=== PATIENT | male | born 1970 | race Two or more races ===

== ENCOUNTER 2019-03-29 17:30 | Inpatient (IN) | payer MEDICAID ==
[~2019-03-29] VITALS: Ht 182.9 cm; Wt 94.1 kg
--- NOTE | 2019-03-29 17:42 | NUR ---
CAME IN FOR WORSENING EPIGASTRIC PAIN X 2 DAYS, -N/V/D. TO ER BED 11, HOOKED TO MONITOR, CHANGED TO GOWN, PROVIDED W WARM BLANKET, AWAITING MD LOPEZ.
--- NOTE | 2019-03-29 17:48 | NUR ---
DR ALMAGUER AT BEDSIDE
[2019-03-29] MEDS ORDERED: SUCRALFATE 1 G TABLET PO ONE (18:00)
--- NOTE | 2019-03-29 18:00 | NUR ---
PUBLIC HEALTH MICROBIOLOGIST AT BEDSIDE
[2019-03-29] MEDS ORDERED: SUCRALFATE 1 G TABLET ONE (18:01)
--- NOTE | 2019-03-29 18:04 | NUR ---
US TECH AT BEDSIDE
[2019-03-29] MEDS ORDERED: TIOT18CA3 IH (18:40)
[2019-03-29] MEDS ORDERED: HYDR-3972 PO (18:40)
[2019-03-29] MEDS ORDERED: ZOLP10TA6 PO (18:40)
[2019-03-29 18:46] LABS: BASOPHILS % (AUTO) 0.6 % (0.0-2.0); EOSINOPHILS % (AUTO) 3.7 % (0.0-6.0); HEMATOCRIT 42 % (39-51); HEMOGLOBIN 14.3 g/dL (13.5-17.5); LYMPHOCYTES % (AUTO) 33.5 % (20.0-44.0); MEAN CORPUSCULAR HGB CONC 34 g/dl (31.0-36.0); MEAN CORPUSCULAR VOLUME 85 fL (80-96); MONOCYTES # (AUTO) 0.5 /CMM (0.1-1.30); MONOCYTES % (AUTO) 8.2 % (2.0-12.0); NEUTROPHILS # (AUTO) 3.3 /CMM (1.8-8.9); PLATELET COUNT (AUTO) 203 /CMM (150-450); RED BLOOD CELL COUNT(AUTO) 4.94 MIL/uL (4.5-6.0); WHITE BLOOD COUNT (AUTO) 6.1 K/uL (4.3-11.0)
[2019-03-29 18:57] LABS: CALCIUM, SERUM 9.1 mg/dL (8.5-10.1); CARBON DIOXIDE 28 mmol/L (21-32); CHLORIDE 105 mmol/L (98-107); CREATININE 0.8 mg/dL (0.6-1.3); GLUCOSE 96 mg/dL (74-106); POTASSIUM 4.5 mmol/L (3.5-5.1); SODIUM SERUM 141 mmol/L (136-145); UREA NITROGEN, BLOOD 15 mg/dL (7-18)
[2019-03-29 19:03] LABS: ALANINE AMINOTRANSFERASE 20 U/L (12-78); ALKALINE PHOSPHATASE 88 U/L (46-116); ASPARTATE AMINOTRANSFERASE 12 U/L (15-37); BILIRUBIN,DIRECT 0.1 mg/dL (0.0-0.2); BILIRUBIN,TOTAL 0.3 mg/dL (0.2-1.0); LIPASE 135 U/L (73-393); TOTAL PROTEIN, SERUM 7.4 g/dL (6.4-8.2)
[2019-03-29] MEDS ORDERED: IV D5/0.45 NACL 500 ML IV ONE (19:30)
[2019-03-29] MEDS ORDERED: PIPERACILLIN /TAZOBACTAM 3.375 G in IV D5W 50 ML IV ONE (19:30)
--- NOTE | 2019-03-29 19:30 | NUR ---
REPORT GIVEN TO LUCRECIA PIZANO FOR ALLIE
[2019-03-29] MEDS ORDERED: PIPERACILLIN /TAZOBACTAM 3.375 G VIAL IV ONE (19:34)
--- NOTE | 2019-03-29 19:59 | NUR ---
D5 1/2 NS 500ml @150ml/hr PER MD ORDER
--- NOTE | 2019-03-29 21:21 | NUR ---
ADMIT TO 200 [facility] DX CHOLECYSTITIS ACCEPTING FARZANA DNP
--- NOTE | 2019-03-29 22:12 | NUR ---
REPORT GIVEN TO JERICA CABALLERO FOR ALLIE
[2019-03-29] MEDS ORDERED: DEXTROSE 50%-WATER 50 ML DISP.SYRIN IV PRN (22:30)
[2019-03-29] MEDS ORDERED: Z GUARD REMEDY 2 OZ OINT TP PRN (22:30)
[2019-03-29] MEDS ORDERED: ACETAMINOPHEN 325 MG TABLET PO PRN (22:30)
[2019-03-29] MEDS ORDERED: ONDANSETRON HCL/PF 4 MG/2 ML VIAL IVP PRN (22:30)
[2019-03-29 22:38] VITALS: BP 133/82
[2019-03-29] MEDS: MORPHINE SULFATE INJ 2 MG/ML DISP.SYRIN IV PRN (22:57)
[2019-03-29] MEDS ORDERED: IV D5 LR 1,000 ML IV PRN (23:00)
[2019-03-29] MEDS: BLOOD SUGAR DIAGNOSTIC 1 EACH STRIP IN SCH (23:12)
[2019-03-29] MEDS: INSULIN REGULAR, HUMAN 100 UNIT/ML 3 ML VIAL SQ PRN (23:12)
--- NOTE | 2019-03-29 23:58 | NUR ---
RECEIVE PT VIA RODRIGUEZ FROM [facility] AT 2238 ADMIT TO MS FLOOR PT A/O X4, HEAD TO TOE SKIN ASSESSMENT IS DONE NO OPEN WOUNDS. PT EDUCATED PRE-OPERATIVE TEACHING FOR SURGERY TOMORROW. PT COMPLAINING OF ABDOMINAL PAIN MEDICATED WITH MORPHINE IVP WITH RELIEF PT FEELS MORE COMFORTABLE, MAINTAINS NPO, DENIES NAUSEA, VOMITING, FEVER AND DIARRHEA. DENIES CHEST PAIN. BROTHER AT BEDSIDE. KEPT CLEAN AND DRY AND COMFORTABLE. NEEDS ATTENDED AND ANTICIPATED. SAFETY MEASURES AT ALL TIMES. WILL CONT TO [facility].
[2019-03-30] VITALS (10 sets, daily range): BP systolic 107–139; BP diastolic 55–77
[2019-03-30] MEDS ORDERED: PIPERACILLIN /TAZOBACTAM 3.375 G VIAL IV ONE (00:12)
[2019-03-30] MEDS ORDERED: ZOSYN IVPB 3.375 G in IV D5W 50ml IV ONE (02:00)
[2019-03-30] MEDS: INSULIN REGULAR, HUMAN 100 UNIT/ML 3 ML VIAL SQ PRN (05:14)
[2019-03-30] MEDS: BLOOD SUGAR DIAGNOSTIC 1 EACH STRIP IN SCH ×2 (05:14→11:20)
--- NOTE | 2019-03-30 06:08 | NUR ---
MS RN ASLEEP AND EASILY AWAKEN, MAINTAINS NPO. NO C/O PAIN, RESPIRATION EVEN AND UNLABORED, STABLE, NEEDS ATTENDED AND ANTICIPATED, KEPT CLEAN AND DRY AND COMFORTABLE. NURSING CARE RENDERED, AFEBRILE, NO N,V,D. SAFETY MEASURES AT ALL TIMES. ENDORSE TO THE NEXT SHIFT.
[2019-03-30 06:53] LABS: BASOPHILS % (AUTO) 0.6 % (0.0-2.0); EOSINOPHILS % (AUTO) 2.9 % (0.0-6.0); HEMATOCRIT 42 % (39-51); HEMOGLOBIN 14.4 g/dL (13.5-17.5); LYMPHOCYTES # (AUTO) 1.8 /CMM (0.8-4.8); LYMPHOCYTES % (AUTO) 28.8 % (20.0-44.0); MEAN CORPUSCULAR HGB CONC 34 g/dl (31.0-36.0); MEAN CORPUSCULAR VOLUME 85 fL (80-96); MONOCYTES # (AUTO) 0.5 /CMM (0.1-1.30); MONOCYTES % (AUTO) 7.3 % (2.0-12.0); NEUTROPHILS # (AUTO) 3.8 /CMM (1.8-8.9); NEUTROPHILS % (AUTO) 60.4 % (43.0-81.0); PLATELET COUNT (AUTO) 186 /CMM (150-450); RED BLOOD CELL COUNT(AUTO) 4.93 MIL/uL (4.5-6.0); WHITE BLOOD COUNT (AUTO) 6.3 K/uL (4.3-11.0)
[2019-03-30 07:07] LABS: THYROID STIMULATING HORMONE 1.061 uIU/mL (0.358-3.74)
[2019-03-30 07:12] LABS: ALBUMIN 3.6 g/dL (3.4-5.0); BILIRUBIN,TOTAL 0.6 mg/dL (0.2-1.0); CALCIUM, SERUM 9.1 mg/dL (8.5-10.1); CREATININE 0.8 mg/dL (0.6-1.3); MAGNESIUM 1.8 mg/dL (1.8-2.4); PHOSPHORUS 4.1 mg/dL (2.5-4.9); POTASSIUM 3.9 mmol/L (3.5-5.1); TOTAL PROTEIN, SERUM 6.9 g/dL (6.4-8.2)
--- NOTE | 2019-03-30 07:15 | NUR ---
MS/RN Patient received Patient received from caustic cresylate shift superintendent. A/O X4, vital signs stable, NPO at this time for surgical removal of gallbladder. All three consents signed and placed in front of chart. Will continue to monitor and ensure safety.
--- NOTE | 2019-03-30 07:34 | NUR ---
MS/taproom attendant Taken to OR, chart with patient.
[2019-03-30] MEDS: IPRATROPIUM NEB FS 0.5 MG/2.5 ML AMPUL.NEB NEB SCH ×3 (07:35→19:30)
[2019-03-30] MEDS ORDERED: ANESTHESIA TRAY IN PYXIS 1 EA TRAY MC ONE (07:43)
[2019-03-30] MEDS ORDERED: BUPIVACAINE 0.25% 75 MG/30 ML VIAL ONE (07:44)
[2019-03-30] MEDS ORDERED: MIDAZOLAM HCL 2 MG/2ML VIAL ONE (07:49)
[2019-03-30] MEDS ORDERED: HYDROMORPHONE INJ 2 MG/ML DISP.SYRIN ONE (07:49)
[2019-03-30] MEDS ORDERED: ROCURONIUM BROMIDE 50 MG/5 ML ONE (07:49)
[2019-03-30] MEDS ORDERED: PIPERACILLIN /TAZOBACTAM 3.375 G in IV D5W 100 ML IV SCH (08:00)
[2019-03-30] MEDS ORDERED: LABETALOL HCL IV 100MG VIAL ONE (08:48)
[2019-03-30] MEDS ORDERED: TIOTROPIUM BROMIDE 6 CAP/BOX CAP.W.DEV IH SCH (09:00)
[2019-03-30] MEDS ORDERED: FENTANYL PF 100MCG/2ML AMPUL ONE (09:25)
[2019-03-30] MEDS ORDERED: HYDROMORPHONE 1 MG/1 ML DISP.SYRIN ONE (09:41)
[2019-03-30] MEDS ORDERED: HYDROCODONE/APAP 5/325MG 1 EACH TABLET ONE (10:02)
[2019-03-30] MEDS ORDERED: HYDROCODONE/APAP 5/325MG 1 EACH TABLET PO PRN (10:30)
[2019-03-30] MEDS ORDERED: MAGNESIUM HYDROXIDE 30 ML UDC PO PRN (10:30)
--- NOTE | 2019-03-30 10:30 | NUR ---
MS/RN Back in room Patient back in room following laparoscopic removal of gallbladder. Lap sites X3 clean and dry, all covered with large band aid. PHAN drain with 40ml output, emptied upon return. Vital signs stable, blood pressure 120/70. All needs attended, family in room and updated as to plan of care. Will continue to monitor and observe for post operative complications..
[2019-03-30] MEDS: IV D5/0.45 NACL W/20 MEQ KCL 1L IV PRN ×2 (11:19)
--- NOTE | 2019-03-30 12:30 | NUR ---
MS/RN S/B Dr Tellez Seen by Dr Tellez - further pain medication ordered, along with labs for tomorrow.
[2019-03-30] MEDS: KETOROLAC TROMETHAMINE INJ 30 MG/ML VIAL IV PRN ×2 (13:13→21:48)
--- NOTE | 2019-03-30 13:15 | NUR ---
MS/RN Pain Patient complaining of pain to abdomen 05/29, around incision sites. Toradol 30 IV administered as ordered, will monitor effectiveness.
[2019-03-30] MEDS: ANCEF 1 GM/50 ML D5W IV SCH ×2 (15:10)
--- NOTE | 2019-03-30 18:16 | NUR ---
MS/RN End note Complaining of nausea, zofran 4mg administered as ordered. Patient voiding post surgery without any difficulty or pain. Ambulating in hallways, encouraged to hold pillow to abdomen when coughing to support incision sites. All needs addressed, will endore to night auditor.
--- NOTE | 2019-03-30 19:13 | NUR ---
MS RN RECEIVE PT MARGARITO AT THE [facility],A/OX3, S/P PANKAJ HENDERSON JP DRAIN INTACT, RESPIRATIONS EVEN AND UNLABORED, NO SOB NOTED, NO DISTRESS, SAFETY MEASURES IN PLACE. WILL CONTINUE TO MONITOR. Addendum: 03/30/19 at 1914 by FEDERICO SALCEDO RN WALKING
[2019-03-30] MEDS: MORPHINE SULFATE INJ 2 MG/ML DISP.SYRIN IV PRN (19:59)
--- NOTE | 2019-03-30 21:50 | NUR ---
Pagebuddy and spoke to Cresencio newman stringed instrument assembler hospitalist relayed pt c/o difficulty sleeping and wanted zolpidem 10 mg per pt he is taking it at home. per Cresencio newman ordered Zolpidem 10 mg po HS prn read back and verified orders noted and carried out.
[2019-03-30] MEDS ORDERED: ZOLPIDEM TARTRATE 10 MG TABLET PO PRN (22:00)
[2019-03-31] VITALS: BP 130/69
[2019-03-31] MEDS: ANCEF 1 GM/50 ML D5W IV SCH ×4 (00:01→08:15)
[2019-03-31] MEDS: IV D5/0.45 NACL W/20 MEQ KCL 1L IV PRN ×2 (01:26)
[2019-03-31] MEDS: IPRATROPIUM NEB FS 0.5 MG/2.5 ML AMPUL.NEB NEB SCH ×3 (01:30→13:30)
[2019-03-31] MEDS: MORPHINE SULFATE INJ 2 MG/ML DISP.SYRIN IV PRN ×2 (01:35→08:16)
[2019-03-31 04:00] VITALS: BP 124/89
--- NOTE | 2019-03-31 06:02 | NUR ---
MS RN ASLEEP AND EASILY AWAKEN, TOLERATING ROOM AIR 100% NOT IN DISTRESS AFEBRILE, RESPIRATION EVEN AND UNLABORED, S/P LAP SANTIAGO WITH DRESSING INTACT NO S/S OF BLEEDING. PHAN DRAIN INTACT DRAINING SEROSANGUINEOUS FLUID. KEPT CLEAN AND DRY AND COMFORTABLE. NURSING CARE RENDERED, PAIN MEDICATED WITH PRN PAIN MEDICATION WITH RELIEF, PER PT FELT RESTED AND SLEPT WELL. SAFETY MEASURES AT ALL TIMES. ENDORSE TO THE NEXT SHIFT.
--- NOTE | 2019-03-31 07:18 | NUR ---
RN OPENING NOTE PT WAS RECEIVED IN BED AT LOWEST AND LOCKED POSITION WITH SIDE RAILS UP X2, A/O X4 BREATHING EVEN AND UNLABORED ON RA WITH NO S/S OF ANY DISTRESS OR PAIN NOTED AT THIS TIME, IV IS PATENT AND INTACT WITH IVF INFUSING, NOTED TO BE S/P LAP SANTIAGO ON 03/30, SAFETY PRECAUTIONS IN PLACE, CALL LIGHT WITHIN REACH, WILL MONITOR PT ACCORDINGLY.
[2019-03-31 08:00] VITALS: BP 118/79
[2019-03-31 08:42] LABS: ALBUMIN 3.6 g/dL (3.4-5.0); BILIRUBIN,TOTAL 0.7 mg/dL (0.2-1.0); CALCIUM, SERUM 9.2 mg/dL (8.5-10.1); CREATININE 0.9 mg/dL (0.6-1.3); PHOSPHORUS 3.7 mg/dL (2.5-4.9); POTASSIUM 4.1 mmol/L (3.5-5.1)
[2019-03-31 09:12] LABS: BASOPHILS % (AUTO) 0.4 % (0.0-2.0); EOSINOPHILS % (AUTO) 0.5 % (0.0-6.0); HEMATOCRIT 39 % (39-51); HEMOGLOBIN 13.3 g/dL (13.5-17.5); LYMPHOCYTES # (AUTO) 1.4 /CMM (0.8-4.8); MEAN CORPUSCULAR HGB CONC 35 g/dl (31.0-36.0); MEAN CORPUSCULAR VOLUME 84 fL (80-96); MONOCYTES # (AUTO) 0.7 /CMM (0.1-1.30); MONOCYTES % (AUTO) 9.5 % (2.0-12.0); NEUTROPHILS # (AUTO) 5.4 /CMM (1.8-8.9); NEUTROPHILS % (AUTO) 71.6 % (43.0-81.0); PLATELET COUNT (AUTO) 192 /CMM (150-450); RED BLOOD CELL COUNT(AUTO) 4.59 MIL/uL (4.5-6.0); WHITE BLOOD COUNT (AUTO) 7.5 K/uL (4.3-11.0)
[2019-03-31] MEDS ORDERED: METR500T PO (13:02)
[2019-03-31] MEDS ORDERED: CIPR-262 PO (13:02)
--- NOTE | 2019-03-31 15:43 | NUR ---
DISCHARGE NOTE PT WAS D/C BACK AT HOME AT THIS TIME IN MEDICALLY STABLE CONDITION. IV AND ID BAND WERE REMOVED. ALL D/C PAPERWORK, EXITCARE, BELONGINGS LIST, AND PRESCRIPTIONS WERE DISCUSSED, SIGNED AND HANDED TO THE PATIENT. PHOTOS OF SURGICAL INCISIONS WERE DOCUMENTED AND PLACED IN THE CHART. PT LEFT WITH ALL BELONGINGS AND WAS TOLD TO FOLLOW UP WITH IN A WEEK AT HIS OFFICE WERE HE WOULD GET HIS GUY REMOVED. ALL NEEDS ATTENDED TO DURING HIS STAY. HE WAS TAKEN DOWN BY JERICA MCMILLAN AT THIS TIME WHERE HE LEFT IN HIS PRIVATE CAR WITH HIS SON.
== END 2019-03-31 15:45 | disposition home or self-care (01) | DRG 263 ==
LOC: ER 17:34 → MEDSG2 22:14
PROVIDERS: ADMIT Hospitalist; ATTEND Nurse Practitioner Acute Care
PROC: 0FT44ZZ Resection of Gallbladder, Percutaneous Endoscopic Approach (ICD-10-PCS; principal; 2019-03-30)
DX: K81.0 Acute cholecystitis (principal); E66.3 Overweight; I10 Essential (primary) hypertension; Z68.28 Body mass index [BMI] 28.0-28.9, adult; K66.0 Peritoneal adhesions (postprocedural) (postinfection)
CPT/HCPCS: 36415; 76705-TC; 80048-TC; 80053-TC; 80061-TC; 80076-TC; 82962-TC; 83690-TC; 83735-TC; 84100-TC; 84443-TC; 84484-TC; 85025-TC; 85730-TC; 87081-TC; 88304-TC; G0378; J0330; J0690; J1100; J1170; J1815; J1885; J2250; J2270; J2405; J2543; J2704; J2710; J3010; J3480; J3490; J7060

== ENCOUNTER 2019-07-29 18:25 | Emergency (ER) | payer MEDICAID ==
[~2019-07-29] VITALS: Ht 172.7 cm; Wt 99.8 kg
[~2019-07-29 18:25] MED LIST: CIPR-262 PO; HYDR-3972 PO; METR500T PO; TIOT18CA3 IH; ZOLP10TA6 PO
[2019-07-29 18:31] VITALS: BP 128/70
== END 2019-07-29 18:45 | disposition home or self-care (01) ==
LOC: ER 18:30
DX: H60.91 Unspecified otitis externa, right ear (principal); F17.200 Nicotine dependence, unspecified, uncomplicated; Z79.899 Other long term (current) drug therapy

== ENCOUNTER 2020-01-04 07:54 | Emergency (ER) | payer MEDICAID ==
[~2020-01-04] VITALS: Ht 177.8 cm; Wt 99.8 kg
--- NOTE | 2020-01-04 08:00 | NUR ---
CAME IN FOR LOWER BACK PAIN RADIATING TO LLE x 1WEEK. TO ER BED 10, HOOKED TO MONITOR, AWAITING MD LOPEZ. AOx4, KEPT COMFORTABLE.
--- NOTE | 2020-01-04 08:19 | NUR ---
DR HILTON AT BEDSIDE
[2020-01-04] MEDS ORDERED: DIAZEPAM 5 MG TABLET ONE (08:27)
[2020-01-04] MEDS ORDERED: KETOROLAC TROMETHAMINE INJ 60 MG/2 ML VIAL IM ONE ×2 (08:27→08:30)
[2020-01-04] MEDS ORDERED: DIAZEPAM 5 MG TABLET PO ONE (08:30)
--- NOTE | 2020-01-04 08:46 | NUR ---
Patient discharged to home in stable condition. Written and verbal after care instructions given. Patient verbalizes understanding of instruction.
--- NOTE | 2020-01-04 08:46 | NUR ---
MD gave prescription for Deane. Instructed patient not to drive when taking medication. Provided information about medication side effects such as dizziness, drowsiness, lightheadedness, nausea, vomiting,upset stomach,constipation,headache,mood changes, blurred vision. Patient verbalized understanding.
[2020-01-04 08:49] VITALS: BP 139/72
== END 2020-01-04 08:49 | disposition home or self-care (01) ==
LOC: ER 08:02
DX: M54.42 Lumbago with sciatica, left side (principal); F10.10 Alcohol abuse, uncomplicated; F17.200 Nicotine dependence, unspecified, uncomplicated; Y90.9 Presence of alcohol in blood, level not specified; Z79.899 Other long term (current) drug therapy
CPT/HCPCS: 96372; 99283; J1885

== ENCOUNTER 2021-04-22 07:11 | Emergency (ER) | payer BC, MEDICAID ==
[~2021-04-22] VITALS: Ht 167.6 cm; Wt 101.6 kg
[2021-04-22 07:15] VITALS: BP 130/83
[2021-04-22] MEDS ORDERED: ACYC-108 PO ×2 (07:32→07:36)
== END 2021-04-22 07:48 | disposition home or self-care (01) ==
LOC: ER 07:14
DX: B02.9 Zoster without complications (principal); F17.200 Nicotine dependence, unspecified, uncomplicated